=== PATIENT | female | born 1955 | race Caucasian/White ===

== ENCOUNTER 2017-02-17 12:06 | Emergency (ER) | payer BC ==
[~2017-02-17] VITALS: Ht 165.1 cm; Wt 73.0 kg
[2017-02-17 13:45] LABS: HEMATOCRIT 35.8 % (37.0-47.0); HEMOGLOBIN 12.6 g/dl (12.0-16.0); IMMATURE GRANULOCYTES 0.5 % (0.0-1.0); MEAN CELL VOLUME 89.3 fL CALC (80.0-100.0); MEAN CORPUSCULAR HGB 31.4 pG CALC (26.0-32.0); MEAN CORPUSCULAR HGB CONC 35.2 g/L CALC (32.0-36.0); NEUT# 6.28 thou/uL (2.00-7.15); RED BLOOD COUNT 4.01 mill/uL (4.20-5.60); RED CELL DISTRI WIDTH 11.9 % (11.5-15.5)
[2017-02-17 13:59] LABS: ALBUMIN 3.8 g/dL (3.2-5.0); ALKALINE PHOSPHATASE 73 u/l (38-126); ANION GAP 14 (6-22 (CALC)); BILIRUBIN, TOTAL 0.5 mg/dL (0.0-1.4); BUN 17 mg/dL (8-23); BUN/CREATININE RATIO 21 (12-20 (CALC)); CALCIUM 9.7 mg/dL (8.4-10.2); CARBON DIOXIDE 31 mmol/l (22-30); CHLORIDE 99 mmol/l (95-108); CREATININE 0.8 mg/dL (0.5-1.0); GFR > 60 ML/MIN (>=60 (CALC)); GFR FOR AFR.AMER. > 60 ML/MIN (>=60 (CALC)); GLUCOSE 87 mg/dL (82-115); POTASSIUM 3.7 mmol/l (3.5-5.1); SGOT/AST 34 u/l (9-36); SGPT/ALT 43 u/l (11-66); SODIUM 140 mmol/l (137-146); TOTAL PROTEIN 6.2 g/dL (6.3-8.2)
[2017-02-17 14:06] LABS: INFLUENZA A NONE DETECTED (NONE DETECT); INFLUENZA B NONE DETECTED (NONE DETECT)
[2017-02-17] MEDS ORDERED: FLEXERIL PO (18:03)
[2017-02-17] MEDS ORDERED: ULTRAM50 M1 PO (18:03)
[2017-02-17 19:00] VITALS: BP 142/69
== END 2017-02-17 19:00 | disposition home or self-care (01) | DRG 552 ==
LOC: ED 12:06
PROVIDERS: Emergency Medicine
DX: S16.1XXA Strain of muscle, fascia and tendon at neck level, initial encounter (principal); K21.9 Gastro-esophageal reflux disease without esophagitis; X50.1XXA Overexertion from prolonged static or awkward postures, initial encounter

== ENCOUNTER 2017-02-24 13:50 | Emergency (ER) | payer BC ==
[~2017-02-24] VITALS: Ht 165.1 cm; Wt 72.0 kg
[~2017-02-24 13:50] MED LIST: FLEXERIL PO; ULTRAM50 M1 PO
[2017-02-24 14:44] LABS: HEMATOCRIT 37.6 % (37.0-47.0); HEMOGLOBIN 13.2 g/dl (12.0-16.0); IMMATURE GRANULOCYTES 0.4 % (0.0-1.0); MEAN CELL VOLUME 89.1 fL CALC (80.0-100.0); MEAN CORPUSCULAR HGB 31.3 pG CALC (26.0-32.0); MEAN CORPUSCULAR HGB CONC 35.1 g/L CALC (32.0-36.0); NEUT# 6.46 thou/uL (2.00-7.15); RED BLOOD COUNT 4.22 mill/uL (4.20-5.60); RED CELL DISTRI WIDTH 11.8 % (11.5-15.5)
[2017-02-24 14:46] LABS: URINE BILIRUBIN - DIPSTICK NEGATIVE (NEGATIVE); URINE BLOOD DIPSTICK NEGATIVE (NEGATIVE); URINE COLOR YELLOW; URINE GLUCOSE - DIPSTICK NEGATIVE (NEGATIVE); URINE KETONE NEGATIVE (NEGATIVE); URINE LEUK ESTERASE TRACE (NEGATIVE); URINE NITRITE - DIPSTICK NEGATIVE (Negative); URINE PROTEIN - DIPSTICK NEGATIVE (NEG-TRACE); URINE UROBILINOGEN - DIPSTICK 0.2 E.U./dL (0.2)
[2017-02-24 14:48] LABS: URINE CLARITY CLEAR
[2017-02-24 14:54] LABS: ALBUMIN 4.6 g/dL (3.2-5.0); ALKALINE PHOSPHATASE 70 u/l (38-126); ANION GAP 17 (6-22 (CALC)); BILIRUBIN, TOTAL 0.6 mg/dL (0.0-1.4); BUN 21 mg/dL (8-23); BUN/CREATININE RATIO 25 (12-20 (CALC)); CALCIUM 10.3 mg/dL (8.4-10.2); CARBON DIOXIDE 30 mmol/l (22-30); CHLORIDE 96 mmol/l (95-108); CREATININE 0.9 mg/dL (0.5-1.0); GFR > 60 ML/MIN (>=60 (CALC)); GFR FOR AFR.AMER. > 60 ML/MIN (>=60 (CALC)); GLUCOSE 89 mg/dL (82-115); LIPASE 44 u/l (23-300); POTASSIUM 2.7 mmol/l (3.5-5.1); SGOT/AST 32 u/l (9-36); SGPT/ALT 41 u/l (11-66); SODIUM 140 mmol/l (137-146); TOTAL PROTEIN 7.9 g/dL (6.3-8.2)
[2017-02-24] MEDS ORDERED: KLOR-CON M2020 MEQ PO (14:56)
[2017-02-24] MEDS ORDERED: SIMVASTATIN20 MG PO (14:56)
[2017-02-24] MEDS ORDERED: OMEPRAZOLE10 MG PO (14:56)
[2017-02-24] MEDS ORDERED: MAXZIDE-2537.5 MG/TA PO (14:57)
[2017-02-24] MEDS ORDERED: [UNRECOGNIZED DRUG - OTHER] PO (14:59)
[2017-02-24] MEDS ORDERED: MULTIVITAMI1 PO (14:59)
[2017-02-24] MEDS ORDERED: BENADRYL 25MG C25 MG PO (15:00)
[2017-02-24] MEDS ORDERED: MAGNESIUM500 MG PO (15:01)
[2017-02-24] MEDS ORDERED: FIBER DIET PO (15:02)
[2017-02-24] MEDS ORDERED: VITAMIN D2400 UNIT PO (15:03)
[2017-02-24] MEDS ORDERED: EC-NAPROSYN500 MG PO (17:57)
[2017-02-24] MEDS ORDERED: POTASSIUM CHLO20 ME1 PO (17:57)
[2017-02-24] MEDS ORDERED: KEFLEX500 MG PO (18:11)
[2017-02-24 20:04] VITALS: BP 141/80
== END 2017-02-24 20:06 | disposition home or self-care (01) | DRG 392 ==
LOC: ED 13:50
PROVIDERS: Emergency Medicine
DX: R10.2 Pelvic and perineal pain (principal); E87.6 Hypokalemia; K59.00 Constipation, unspecified; R10.31 Right lower quadrant pain

== ENCOUNTER 2020-12-28 16:12 | Observation (INO) | payer BC ==
[~2020-12-28] VITALS: Ht 165.1 cm; Wt 75.8 kg
[~2020-12-28 16:12] MED LIST changes: +ATORVASTATIN CA40 MG PO; +BENADRYL 25MG C25 MG PO; +EC-NAPROSYN500 MG PO; +FIBER DIET PO; +KEFLEX500 MG PO; +KLOR-CON M2020 MEQ PO; +MAGNESIUM500 MG PO; +MAXZIDE-2537.5 MG/TA PO; +MULTIVITAMI1 PO; +OMEPRAZOLE10 MG PO; +POTASSIUM CHLO20 ME1 PO; +VITAMIN D2400 UNIT PO; +[UNRECOGNIZED DRUG - OTHER] PO
--- NOTE | 2020-12-28 16:15 | NUR ---
PATIENT AMBULATORY TO ROOM BEDSIDE TRIAGE COMPLETED
--- NOTE | 2020-12-28 17:30 | NUR ---
PT AWAITING RESULTS
[2020-12-28 17:51] LABS: HEMATOCRIT 41.5 % (37.0-47.0); HEMOGLOBIN 14.3 g/dl (12.0-16.0); IMMATURE GRANULOCYTES 0.2 % (0.0-5.0); MEAN CORPUSCULAR HGB CONC 34.5 g/dL CAL (32.0-36.0); NEUT# 11.09 thou/uL (2.00-7.15); RED BLOOD COUNT 4.61 mill/uL (4.20-5.60); RED CELL DISTRI WIDTH 12.1 % (11.5-15.5)
[2020-12-28 17:52] LABS: URINE BILIRUBIN - DIPSTICK NEGATIVE (NEGATIVE); URINE BLOOD DIPSTICK NEGATIVE (NEGATIVE); URINE COLOR YELLOW; URINE GLUCOSE - DIPSTICK NEGATIVE (NEGATIVE); URINE KETONE NEGATIVE (NEGATIVE); URINE LEUK ESTERASE NEGATIVE (NEGATIVE); URINE PH 6.5 (4.5-8.0); URINE PROTEIN - DIPSTICK NEGATIVE (NEG-TRACE); URINE SPECIFIC GRAVITY 1.025; URINE UROBILINOGEN - DIPSTICK 0.2 E.U./dL (0.2)
[2020-12-28 17:53] LABS: URINE NITRITE - DIPSTICK NEGATIVE (Negative)
[2020-12-28 18:10] LABS: ALBUMIN 4.2 g/dL (3.2-5.0); ALKALINE PHOSPHATASE 58 u/l (38-126); AMYLASE 63 u/l (30-110); ANION GAP 7 (6-22 (CALC)); BUN 19 mg/dL (8-23); BUN/CREATININE RATIO 24 (12-20 (CALC)); CARBON DIOXIDE 35 mmol/l (22-30); CHLORIDE 97 mmol/l (95-108); CREATININE 0.8 mg/dL (0.5-1.0); GFR > 60 ML/MIN (>=60 (CALC)); GFR FOR AFR.AMER. > 60 ML/MIN (>=60 (CALC)); SGOT/AST 25 u/l (9-36); SODIUM 136 mmol/l (137-146); TOTAL PROTEIN 7.2 g/dL (6.3-8.2)
[2020-12-28 18:11] LABS: BILIRUBIN, TOTAL 1.1 mg/dL (0.0-1.4)
--- NOTE | 2020-12-28 18:30 | NUR ---
PT RESTING AWAITING RESULTS
--- NOTE | 2020-12-28 20:00 | NUR ---
PT AWAITING ADMISSION
--- NOTE | 2020-12-28 21:00 | NUR ---
[facility] CALLED FROM NIECY HOWELL RN.
[2020-12-28 21:15] VITALS: BP 139/63
--- NOTE | 2020-12-28 21:15 | NUR ---
RECEIVED PATIENT TO ROOM VIA WHEELCHAIR. PATIENT AWAKE, ALERT AND ORIENTED X3. AMBULATORY. VSS. NO DISTRESS NOTED. MILD ABDOMINAL DISCOMFORT, RLQ. ORIENTED TO ROOM AND INSTRUCTED ON USE OF CALL LIGHT AND BED CONTROLS.
--- NOTE | 2020-12-28 21:20 | NUR ---
WHEELED PT UP TO ICU VIA WHEELCHAIR ON IRRIGATOR OVERHEAD, REPORT GIVEN TO MIKI RIVERA
[2020-12-28 22:00] VITALS: BP 119/59
--- NOTE | 2020-12-29 00:22 | NUR ---
SLEEPING PILL ADMINISTERED PER REQUEST. PATIENT STABLE, DENIES PAIN. CALL LIGHT WITHIN REACH INSTRUCTED TO CALL FOR ASSISTANCE.
[2020-12-29 00:25] VITALS: BP 105/56
[2020-12-29 02:00] VITALS: BP 111/56
[2020-12-29 04:51] VITALS: BP 109/50
--- NOTE | 2020-12-29 04:55 | NUR ---
PATIENT RESTING. CLUB ROOM ATTENDANT AT BEDSIDE FOR MORNING LABS, PATIENT TOLERATED WELL. FLAGYL IV GIVEN AT THIS TIME. PATIENT STABLE, NO DISTRESS NOTED. NO COMPLAINTS OF PAIN AT THIS TIME. CALL LIGHT WITHIN REACH.
[2020-12-29 05:26] LABS: HEMATOCRIT 35.9 % (37.0-47.0); MEAN CELL VOLUME 92.1 fL CALC (80.0-100.0); MEAN CORPUSCULAR HGB 31.5 pG CALC (26.0-32.0); MEAN CORPUSCULAR HGB CONC 34.3 g/dL CAL (32.0-36.0); RED BLOOD COUNT 3.9 mill/uL (4.20-5.60); RED CELL DISTRI WIDTH 12.2 % (11.5-15.5)
[2020-12-29 05:35] LABS: HEMOGLOBIN 12.3 g/dl (12.0-16.0)
[2020-12-29 05:41] LABS: ANION GAP 6 (6-22 (CALC)); BUN 13 mg/dL (8-23); BUN/CREATININE RATIO 22 (12-20 (CALC)); CARBON DIOXIDE 29 mmol/l (22-30); CHLORIDE 106 mmol/l (95-108); CREATININE 0.6 mg/dL (0.5-1.0); GFR > 60 ML/MIN (>=60 (CALC)); GFR FOR AFR.AMER. > 60 ML/MIN (>=60 (CALC)); MAGNESIUM 1.7 mg/dL (1.6-2.3); SODIUM 137 mmol/l (137-146)
[2020-12-29 05:45] LABS: POTASSIUM 3.7 mmol/l (3.5-5.1)
--- NOTE | 2020-12-29 07:05 | NUR ---
REPORT RECEIVED FROM DIRECTOR [employer], PT ALERT/ORIENTED X3, SITTING UP IN BED WATCHING TV. STATES FEELS MUCH BETTER FROM LAST NIGHT, STATES HAS BEEN HAVING OFF AND ON LOWER ABDOMINAL PAIN WITH BELCHING. CLEAR LIQUID DIET LAST NIGHT, STATES THINKS IF SHE HAS A BOWEL MOVEMENT SHE WOULD FEEL MUCH BETTER, HASNT HAD ONE FOR A COUPLE OF DAYS. SIDE RAILS UP AND CALL LIGHT WITHIN REACH, NO COMPLAINTS AT THIS TIME
--- NOTE | 2020-12-29 07:12 | NUR ---
2 PERSON ASSIST TO RECLINER. NO C/O PAIN. BELCHING NOTED DURING TRANSFER.
--- NOTE | 2020-12-29 10:57 | NUR ---
pt will be discharged today per doctor, antibiotics have infused, pt up to bathroom amblatory with no problems.
[2020-12-29] MEDS ORDERED: DILT-XR120 MG PO (11:56)
[2020-12-29] MEDS ORDERED: PEPCID20 MG PO (12:12)
[2020-12-29] MEDS ORDERED: XARELTO20 MG PO (12:12)
[2020-12-29] MEDS ORDERED: CIPROFLOXACN500 MG PO (12:23)
[2020-12-29] MEDS ORDERED: METRONIDAZOLE500 MG PO (12:24)
[2020-12-29] MEDS ORDERED: ONDANSETRON4 MG PO (12:29)
--- NOTE | 2020-12-29 12:51 | NUR ---
IV D/C'D AND DISCHARGE INST. GIVEN WITH VOICED UNDERSTANDING. PT TAKEN TO WAITING ROOM PER W/C
== END 2020-12-29 13:00 | disposition home or self-care (01) | DRG 392 ==
LOC: ED 16:12 → ED-I 19:40 → ED 20:01 → ICU 20:02
PROVIDERS: ADMIT Hospitalist; ATTEND Hospitalist
DX: K57.32 Diverticulitis of large intestine without perforation or abscess without bleeding (principal); K50.10 Crohn's disease of large intestine without complications; E87.6 Hypokalemia; I10 Essential (primary) hypertension; E78.00 Pure hypercholesterolemia, unspecified; I48.91 Unspecified atrial fibrillation; K21.9 Gastro-esophageal reflux disease without esophagitis; Z20.822 Contact with and (suspected) exposure to COVID-19
CPT/HCPCS: J1650; Q9967

== ENCOUNTER 2024-02-25 10:22 | Emergency (ER) | payer BC ==
[~2024-02-25] VITALS: Ht 165.1 cm; Wt 73.0 kg
[~2024-02-25 10:22] MED LIST changes: +CIPROFLOXACN500 MG PO; +DILT-XR120 MG PO; +METRONIDAZOLE500 MG PO; +ONDANSETRON4 MG PO; +PEPCID20 MG PO; +XARELTO20 MG PO
[2024-02-25 11:55] VITALS: BP 145/100
[2024-02-25] MEDS ORDERED: BACTRIM DS1 TAB PO (16:56)
== END 2024-02-25 11:57 | disposition home or self-care (01) | DRG 558 ==
LOC: ED 10:22
DX: M70.22 Olecranon bursitis, left elbow (principal)